=== PATIENT | female | born 1970 | race Caucasian/White ===

== ENCOUNTER 2019-05-13 02:42 | Inpatient (IN) | payer MEDICAID ==
[2019-05-13] MEDS: KETOROLAC 15 MG INJ IV (03:10)
[2019-05-13 03:11] LABS: ADD MAN DIFF? NO
[2019-05-13 03:13] LABS: BASOPHILS % 0.2 % (0.0-2.0); HEMATOCRIT 40.3 % (37.0-47.0); HEMOGLOBIN 13.7 g/dl (12.0-16.0); LYMPHOCYTES # 1.2 10^3/ul (0.8-2.9); LYMPHOCYTES % 10.3 % (15.0-51.0); MEAN CORPUSCULAR HEMOGLOBIN 33.9 pg (29.0-33.0); MEAN CORPUSCULAR VOLUME 99.8 fl (82.0-101.0); MEAN PLATELET VOLUME 9.5 fl (7.4-10.4); MONOCYTE # 0.4 10^3/ul (0.3-0.9); MONOCYTES % 3.5 % (0.0-11.0); NEUTROPHIL # 10.3 10^3/ul (1.6-7.5); NEUTROPHILS % 85.7 % (39.0-77.0); PLATELET COUNT 291 10^3/UL (140-415); RED BLOOD COUNT 4.04 10^6/ul (4.20-5.40); RED CELL DISTRIBUTION WIDTH 11.5 % (11.5-14.5)
[2019-05-13 03:13] LABS: WHITE BLOOD COUNT 12.1 10^3/ul (4.8-10.8)
[2019-05-13] MEDS: morphine 2 MG INJ IV (03:21)
[2019-05-13] MEDS: ONDANSETRON 4 MG INJ IV (03:21)
[2019-05-13 03:33] LABS: ALANINE AMINOTRANSFERASE 26 IU/L (13-69); ALBUMIN 4.8 g/dl (3.3-4.9); ALKALINE PHOSPHATASE 100 IU/L (42-121); ANION GAP 13 (5-13); ASPARTATE AMINO TRANSFERASE 21 IU/L (15-46); BILIRUBIN,INDIRECT 0.8 mg/dl (0-1.1); BILIRUBIN,TOTAL 0.8 mg/dl (0.2-1.3); BLOOD UREA NITROGEN 17 mg/dl (7-20); CALCIUM 10.6 mg/dl (8.4-10.2); CARBON DIOXIDE 19 mmol/L (21-31); CHLORIDE 107 mmol/L (97-110); CREATININE 0.81 mg/dl (0.44-1.00); Estimated GFR > 60 mL/min (>60); GLUCOSE 151 mg/dl (70-220); LIPASE 35 U/L (23-300); POTASSIUM 3.9 mmol/L (3.5-5.1); SODIUM 139 mmol/L (135-144); TOTAL PROTEIN 7.8 g/dl (6.1-8.1)
[2019-05-13 03:34] LABS: ETHANOL < 10.0 mg/dl (0-0)
[2019-05-13 04:31] LABS: URINE PH (Dip) POC 5.5 (5.0-8.5)
[2019-05-13 04:31] LABS: URINE BLOOD (Dip) POC 3+ (NEGATIVE); URINE GLUCOSE (Dip) POC Negative (NEGATIVE); URINE KETONES (Dip) POC 3+ (NEGATIVE); URINE LEUKOCYTE EST (Dip) POC Trace (NEGATIVE); URINE NITRITE (Dip) POC Positive (NEGATIVE); URINE TOTAL PROTEIN POC 2+ (NEGATIVE)
[2019-05-13] MEDS: CEFTRIAXONE 1 GM/50 ML (PMX) 50 ML IVPB ×2 (05:29→16:57)
[2019-05-13] MEDS: HYDROmorphONE 0.5 MG/0.5 ML SYG IV (05:39)
[2019-05-13] MEDS: SOD CHLORIDE 0.9% 1,000 ML IV ×5 (05:39→21:44)
[2019-05-13] MEDS ORDERED: HYDROCODONE/APAP (5/325) TAB PO (06:00)
[2019-05-13] MEDS ORDERED: NACL 0.9% 3 ML SYG IV (06:00)
[2019-05-13] MEDS: SOD CHLORIDE 0.9% 500 ML IV (06:00)
[2019-05-13] MEDS ORDERED: CEFTRIAXONE 1 GM/50 ML (PMX) 50 ML IVPB ×2 (06:00→06:30)
[2019-05-13] MEDS ORDERED: ONDANSETRON 4 MG INJ IV (06:00)
[2019-05-13] MEDS: TAMSULOSIN (SR) 0.4 MG CAP PO (07:45)
[2019-05-13] MEDS: ACETAMINOPHEN 325 MG TAB PO ×2 (08:23→14:55)
[2019-05-13] MEDS: HYDROCODONE/APAP (5/325) TAB PO ×3 (08:25→23:02)
[2019-05-13 10:48] LABS: AMPHETAMINE/METHAMPHETAMINE Negative (NEGATIVE); BARBITURATES Negative (NEGATIVE); BENZODIAZEPINES Negative (NEGATIVE); CANNABINOIDS Positive (NEGATIVE); COCAINE Negative (NEGATIVE)
[2019-05-13 10:55] LABS: OPIATES Positive (NEGATIVE)
[2019-05-14] MEDS: SOD CHLORIDE 0.9% 1,000 ML IV ×3 (00:55→17:28)
[2019-05-14] MEDS: AL HYDROX/MG HYDROX/SIMETH 30 ML CUP PO (04:48)
[2019-05-14] MEDS ORDERED: POLYETHYLENE GLYCOL 17 GM PACKET PO (05:00)
[2019-05-14] MEDS: HYDROCODONE/APAP (5/325) TAB PO ×4 (05:07→23:18)
[2019-05-14] MEDS: PANTOPRAZOLE (EC) 40 MG TAB PO (05:07)
[2019-05-14 06:07] LABS: ADD MAN DIFF? NO
[2019-05-14 06:16] LABS: BASOPHILS % 0.1 % (0.0-2.0); EOSINOPHILS % 0.1 % (0.0-7.0); HEMATOCRIT 35.5 % (37.0-47.0); HEMOGLOBIN 11.4 g/dl (12.0-16.0); LYMPHOCYTES # 1.4 10^3/ul (0.8-2.9); MEAN CORPUSCULAR HEMOGLOBIN 32.6 pg (29.0-33.0); MEAN CORPUSCULAR HGB CONC 32.1 g/dl (32.0-37.0); MEAN CORPUSCULAR VOLUME 101.4 fl (82.0-101.0); MEAN PLATELET VOLUME 10.2 fl (7.4-10.4); MONOCYTE # 0.8 10^3/ul (0.3-0.9); MONOCYTES % 10.7 % (0.0-11.0); NEUTROPHIL # 4.9 10^3/ul (1.6-7.5); PLATELET COUNT 206 10^3/UL (140-415); RED CELL DISTRIBUTION WIDTH 11.9 % (11.5-14.5)
[2019-05-14 06:16] LABS: WHITE BLOOD COUNT 7.1 10^3/ul (4.8-10.8)
[2019-05-14 06:58] LABS: ALANINE AMINOTRANSFERASE 28 IU/L (13-69); ALBUMIN/GLOBULIN RATIO 1.15; ALKALINE PHOSPHATASE 64 IU/L (42-121); ANION GAP 4 (5-13); ASPARTATE AMINO TRANSFERASE 24 IU/L (15-46); BILIRUBIN,INDIRECT 0.6 mg/dl (0-1.1); BILIRUBIN,TOTAL 0.6 mg/dl (0.2-1.3); BLOOD UREA NITROGEN 15 mg/dl (7-20); CALCIUM 8.9 mg/dl (8.4-10.2); CARBON DIOXIDE 25 mmol/L (21-31); CHLORIDE 110 mmol/L (97-110); Estimated GFR > 60 mL/min (>60); GLUCOSE 100 mg/dl (70-220); MAGNESIUM 1.9 mg/dl (1.7-2.5); PHOSPHORUS 2.8 mg/dl (2.5-4.9); POTASSIUM 3.5 mmol/L (3.5-5.1); SODIUM 139 mmol/L (135-144); TOTAL PROTEIN 5.6 g/dl (6.1-8.1)
[2019-05-14] MEDS: DOCUSATE SODIUM 100 MG CAP PO ×2 (08:45→20:24)
[2019-05-14] MEDS: POLYETHYLENE GLYCOL 17 GM PACKET GTB (10:25)
[2019-05-14] MEDS: CEFTRIAXONE 1 GM/50 ML (PMX) 50 ML IVPB (14:29)
[2019-05-14] MEDS: ACETAMINOPHEN 325 MG TAB PO (16:03)
[2019-05-15] MEDS: SOD CHLORIDE 0.9% 1,000 ML IV ×2 (01:37→10:32)
[2019-05-15] MEDS: PANTOPRAZOLE (EC) 40 MG TAB PO (05:19)
[2019-05-15] MEDS: HYDROCODONE/APAP (5/325) TAB PO (05:19)
[2019-05-15] MEDS: POLYETHYLENE GLYCOL 17 GM PACKET GTB (08:49)
[2019-05-15] MEDS: DOCUSATE SODIUM 100 MG CAP PO (08:49)
[2019-05-15] MEDS: ACETAMINOPHEN 325 MG TAB PO (12:30)
[2019-05-15] MEDS: CEFTRIAXONE 1 GM/50 ML (PMX) 50 ML IVPB (14:33)
[2019-05-15] MEDS ORDERED: TAMSULOSIN (SR) 0.4 MG CAP PO (21:00)
== END 2019-05-15 16:54 | disposition home or self-care (01) | DRG 690 ==
LOC: E/R 02:42 → PP2 05:33
DX: N13.6 Pyonephrosis (principal); B96.20 Unspecified Escherichia coli [E. coli] as the cause of diseases classified elsewhere; K59.00 Constipation, unspecified; N10 Acute pyelonephritis; F41.9 Anxiety disorder, unspecified; E86.0 Dehydration; F12.90 Cannabis use, unspecified, uncomplicated
CPT/HCPCS: 36415; 74018; 74176; 80053; 80307; 81003; 83690; 83735; 84100; 84702; 85025; 87086; 96374; 96375; 99285-25